=== PATIENT | male | born 1970 | race Caucasian/White ===

== ENCOUNTER 2020-02-23 22:05 | Emergency (ER) | payer OTHER ==
[2020-02-23 22:21] VITALS: BMI 28.1
--- NOTE | 2020-02-24 00:14 | PDOC ---
*Physical Exam - Vital Signs Last Vital Signs Temp Pulse Resp BP Pulse Ox 98.1 F 72 20 112/88 96 02/23/20 22:18 02/23/20 22:18 02/23/20 22:18 02/23/20 22:18 02/23/20 22:18 Medical Decision Making - Medical Decision Making 02/24/20 00:13 Patient seen by the advanced practice provider under my supervision. Ancillary testing reviewed as necessary. I agree with plan as outlined by the advanced practice provider. Discharge - Discharge Information Problems reviewed: Yes Clinical Impression/Diagnosis: Right flank pain - Follow up/Referral - Patient Discharge Instructions - Post Discharge Activity
--- NOTE | 2020-02-24 00:16 | PDOC ---
History of Present Illness - General Chief Complaint: Back Pain Stated Complaint: BACK PAIN Time Seen by Provider: 02/23/20 23:45 History Source: Patient - History of Present Illness Initial Comments: 02/24/20 00:55 50-year-old male complaining of right flank pain radiating to the right abdomen for the last 1 week on and off. Patient reports pain is worse with movement and sometimes constant. Today pain got worse. Denies hematuria, dysuria. Patient reports frequent urination which is normal for him.denies trauma, injury/ fall. PMHX: kidney stones 02/24/20 00:57 Past History - Medical History Allergies/Adverse Reactions: Allergies Allergy/AdvReac Type Severity Reaction Status Date / Time No Known Allergies Allergy Verified 02/23/20 22:21 Home Medications: Ambulatory Orders Cyclobenzaprine HCl [Flexeril -] 10 mg PO HS PRN #7 tablet 02/24/20 Ibuprofen 600 mg PO QID PRN #20 tablet 02/24/20 CVA: No COPD: No Disorders: Yes (Renal colic R) - Psycho-Social/Smoking History Smoking History: Never smoked - Substance Abuse Hx (Audit-C & DAST Scrn) How often the patient has a drink containing alcohol: Never Score: In Men: 4 or > Positive; In Women: 3 or > Positive: 0 Screen Result (Pos requires Nsg. Audit-10AR): Negative Review of Systems - Review of Systems Able to Perform ROS?: Yes Is the patient limited Salvadorean proficient: No Constitutional: No: Symptoms Reported, See HPI, Chills, Diaphoresis, Fever, Loss of Appetite, Malaise, Night Sweats, Weakness, Weight Stable, Unintentional Wgt. Loss, Unexplained wgt Loss, Other Cardiac (ROS): No: Symptoms Reported, See HPI, Chest Pain, Edema, Irregular Heart Rate, Lightheadedness, Palpitations, Syncope, Chest Tightness, Other ABD/GI: No: Symptoms Reported, See HPI, Abdominal Distended, Abd. Pain w/ defecation, Blood Streaked Bowels, Constipated, Diarrhea, Difficulty Swallowing, Nausea, Poor Appetite, Poor Fluid Intake, Rectal Bleeding, Vomiting, Indiges tion, Abdominal cramping, Tarry Stools, Other : Yes: Frequency, Flank Pain Musculoskeletal: Yes: Back Pain. No: Symptoms Reported, See HPI, Gout, Joint Pain, Joint Swelling, Muscle Pain, Muscle Weakness, Neck Pain, Joint Stiffness, Other *Physical Exam - Vital Signs Last Vital Signs Temp Pulse Resp BP Pulse Ox 98.1 F 72 20 112/88 96 02/23/20 22:18 02/23/20 22:18 02/23/20 22:18 02/23/20 22:18 02/23/20 22:18 - Physical Exam General Appearance: Yes: Appropriately Dressed Cardiovascular: positive: Regular Rhythm, Regular Rate Gastrointestinal/Abdominal: positive: Normal Bowel Sounds, Soft. negative: Tender Musculoskeletal: positive: Normal Inspection Extremity: positive: Normal Capillary Refill, Normal Inspection, Normal Range of Motion Integumentary: positive: Normal Color, Dry, Warm Neurologic: positive: Fully Oriented, Alert, Normal Mood/Affect Medical Decision Making - Medical Decision Making A: flank pain P: Ua: negative Spiral Ct negative pain control 02/24/20 03:[address]: Negative for right or left urinary tract stone or obstruction. No bowel obstruction or inflammation. Negative for diverticulitis or colitis. Normal appendix. Liver is mildly enlarged and borderline fatty. Normal spleen. No gallbladder abnormalities. Normal adrenal glands. No free intraperitoneal air or free fluid. Osseous structures are intact. 02/24/20 03:19 02/24/20 04:32 Discharge - Discharge Information Problems reviewed: Yes Clinical Impression/Diagnosis: Right flank pain, Musculoskeletal back pain Disposition: HOME - Additional Discharge Information Prescriptions: Cyclobenzaprine HCl [Flexeril -] 10 mg PO HS PRN #7 tablet PRN Reason: Muscle Spasms Ibuprofen 600 mg PO QID PRN #20 tablet PRN Reason: Pain - Follow up/Referral - Patient Discharge Instructions Patient Printed Discharge Instructions: Back Pain (Alternative Therapy) Additional Instructions: do light stretches . Then alternate with ice and heat after. Take ibuprofen every 6 hours as needed for pain. Take Flexeril as prescribed for muscle spasm. Flexeril can make you sleepy, do not drive or operate heavy machinery after taking the medication. Follow-up with an orthopedic doctor if symptoms persist. A referral was given to you today. Return to the emergency room for any worsening symptoms. - Post Discharge Activity Work/Back to School Note: Back to Work
[2020-02-24] MEDS ORDERED: KETOROLAC TROMETHAMINE 30 MG/1 ML VIAL IM ONE (00:39)
[2020-02-24 00:45] LABS: URINE APPEARANCE CLEAR; URINE BILIRUBIN NEGATIVE (NEGATIVE); URINE COLOR YELLOW; URINE GLUCOSE (UA) NEGATIVE (NEGATIVE); URINE KETONE NEGATIVE (NEGATIVE); URINE LEUK ESTERASE NEGATIVE (NEGATIVE); URINE NITRITE NEGATIVE (NEGATIVE); URINE PROTEIN NEGATIVE (NEGATIVE)
[2020-02-24] MEDS ORDERED: KETOROLAC TROMETHAMINE 30 MG/1 ML VIAL ONE (00:54)
[2020-02-24 04:13] VITALS: BP 122/51; PULSE 74; TEMP 98.3
== END 2020-02-24 04:14 | disposition home or self-care (01) ==
LOC: JER 22:05
PROC: 3E0234Z Introduction of Serum, Toxoid and Vaccine into Muscle, Percutaneous Approach (ICD-10-PCS; principal; 2020-02-23)
DX: M54.5 Low back pain (principal); R10.9 Unspecified abdominal pain
CPT/HCPCS: 74176-TC; 81003; 99284-25

== ENCOUNTER 2020-03-08 19:50 | Emergency (ER) | payer OTHER ==
--- NOTE | 2020-03-08 20:10 | PDOC ---
Rapid Medical Evaluation Chief Complaint: Back Pain Time Seen by Provider: 03/08/20 20:07 Medical Evaluation: Allergies Allergy/AdvReac Type Severity Reaction Status Date / Time No Known Allergies Allergy Verified 02/23/20 22:21 03/08/20 20:08 I have performed a brief in-person evaluation of this patient. The patient presents with a chief complaint of: RT lower back pain which improved a week ago and has returns 3 days ago. 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 CT done a week ago here was normal. Denies urinary complains Pertinent physical exam findings: TTP to right lumber area I have ordered the following: deferred The patient will proceed to the ED for further evaluation. Discharge Disposition - Diagnosis Musculoskeletal back pain - Discharge Dispostion Condition at time of disposition: Stable - Referrals - Patient Instructions - Post Discharge Activity
[2020-03-08 20:16] VITALS: BP 132/88; PULSE 98; TEMP 97.2; BMI 27.4
--- NOTE | 2020-03-08 20:42 | PDOC ---
History of Present Illness - General Chief Complaint: Back Pain Stated Complaint: BACK PAIN Time Seen by Provider: 03/08/20 20:07 - History of Present Illness Initial Comments: 03/08/20 20:40 50-year-old male without comorbidities presents for right-sided lower back pain. Patient seen last week for musculoskeletal back pain he re-exacerbated his symptoms by lifting at work today. He is requesting a note for work to not return to work till next week. He has no systemic symptoms no radicular symptoms no loss of bowel bladder function or saddle paresthesias. Past History - Medical History Allergies/Adverse Reactions: Allergies Allergy/AdvReac Type Severity Reaction Status Date / Time No Known Allergies Allergy Verified 02/23/20 22:21 Home Medications: Ambulatory Orders Cyclobenzaprine HCl [Flexeril -] 10 mg PO HS PRN #7 tablet 02/24/20 Ibuprofen 600 mg PO QID PRN #20 tablet 02/24/20 CVA: No COPD: No Disorders: Yes (Renal colic R) - Psycho-Social/Smoking History Smoking History: Never smoked - Substance Abuse Hx (Audit-C & DAST Scrn) How often the patient has a drink containing alcohol: Never Score: In Men: 4 or > Positive; In Women: 3 or > Positive: 0 Screen Result (Pos requires Nsg. Audit-10AR): Negative Review of Systems - Review of Systems Musculoskeletal: Yes: Back Pain *Physical Exam - Vital Signs Last Vital Signs Temp Pulse Resp BP Pulse Ox 97.2 F L 98 H 20 132/88 100 03/08/20 20:07 03/08/20 20:07 03/08/20 20:07 03/08/20 20:07 03/08/20 20:07 - Physical Exam 03/08/20 20:41 Lumbar spine skin color temperature normal range of motion is slightly decreased. No midline tenderness. Moderate bilateral paralumbar musculature spasm and tenderness 5 out of 5 strength bilateral lower extremities without g ross sensorimotor deficits thighs and calves are soft and nontender neurovascular intact Medical Decision Making - Medical Decision Making 03/08/20 20:41 Patient work note provided he has ibuprofen and Flexeril at home follow-up with Ortho I have reviewed the pathophysiology with the patient. They are in agreement with the treatment plan all questions were answered to their satisfaction. Understanding for follow-up without fail was also conveyed to the patient. Again they are in agreement. Discharge - Discharge Information Problems reviewed: Yes Clinical Impression/Diagnosis: Musculoskeletal back pain Condition: Stable Disposition: HOME - Admission No - Follow up/Referral Referrals: Carlos Batista DO [Staff Physician] - - Patient Discharge Instructions Additional Instructions: Continue the medication as directed and return to the emergency room for worsening symptoms. Without fail follow-up with orthopedic surgery in 1 to 2 days for further evaluation and treatment options. - Post Discharge Activity Work/Back to School Note: Back to Work
== END 2020-03-08 21:00 | disposition home or self-care (01) ==
LOC: JERFT 19:50 → JER 19:50 → JERFT 21:00
DX: M54.5 Low back pain (principal)
CPT/HCPCS: 99282-25

== ENCOUNTER 2022-08-05 19:52 | Emergency (ER) | payer OTHER ==
[2022-08-05 20:18] VITALS: BP 146/97; PULSE 89; RESP 19; TEMP 98.6; BMI 30.9
[2022-08-05] MEDS ORDERED: METHOCARBAMOL 500 MG TABLET PO ONE (21:02)
[2022-08-05] MEDS ORDERED: KETOROLAC TROMETHAMINE 30 MG/1 ML VIAL IM ONE (21:02)
[2022-08-05] MEDS ORDERED: KETOROLAC TROMETHAMINE 30 MG/1 ML VIAL ONE (21:09)
[2022-08-05] MEDS ORDERED: METHOCARBAMOL 500 MG TABLET ONE (21:09)
== END 2022-08-05 21:44 | disposition home or self-care (01) ==
LOC: JER 19:52
PROC: 3E0233Z Introduction of Anti-inflammatory into Muscle, Percutaneous Approach (ICD-10-PCS; principal; 2022-08-05)
DX: M25.552 Pain in left hip (principal)
CPT/HCPCS: 73502-TC-LT-FY; 73552-TC-LT-FY; 99284-25